=== PATIENT | female | born 1970 | race Caucasian/White ===

== ENCOUNTER → 2020-04-02 15:42 | Outpatient (CLI) | payer BC, SELFPAY ==
[2020-04-04 14:57] LABS: Covid-19 Nasal PCR Sendout Lex POSITIVE
== END ==
PROVIDERS: PCP Internal Medicine Adolescent Medicine; Visit Provider Internal Medicine Adolescent Medicine
DX: Z20.828 Contact with and (suspected) exposure to other viral communicable diseases (principal); U07.1 COVID-19
CPT/HCPCS: U0004

== ENCOUNTER 2024-04-24 09:11 | Outpatient (CLI) | payer BC, SELFPAY ==
[2024-04-24 09:34] LABS: Basophils # 0.1 K/mm3 (0-0.2); Basophils % 1.1 % (0.1-2.0); Eosinophils # 0.1 K/mm3 (0.0-0.4); Eosinophils % 1.6 % (0.1-12.0); Hematocrit 42.8 % (37.0-47.0); Hemoglobin 14.1 g/dL (12.2-16.2); Lymphocytes # 2.1 K/mm3 (0.7-4.5); Lymphocytes % 29.4 % (10-50); Mean Corpuscular Hemoglobin 30.5 pg (27.0-31.2); Mean Corpuscular Volume 92.4 fl (81-99); Mean Platelet Volume 7.2 fl (7.4-10.4); Monocytes # 0.4 K/mm3 (0.1-1.0); Neutrophils # 4.4 K/mm3 (1.8-7.8); Neutrophils % 61.9 % (37.0-80.0); Platelet Count 317 K/mm3 (142-424); Red Blood Count 4.63 M/mm3 (4.20-5.40); Red Cell Distribution Width 12.9 % (11.5-17.5); White Blood Count 7.1 K/mm3 (4.8-10.8)
[2024-04-24 10:23] LABS: Alanine Aminotransferase 21 U/L (12-78); Albumin Level 4.6 g/dl (3.5-5.0); Alkaline Phosphatase 51 U/L (38-126); Anion Gap 10.2 mEq/L (5-15); Aspartate Amino Transferase 35 U/L (14-36); Bilirubin,Direct 0.2 mg/dl (0.0-0.4); Bilirubin,Indirect 0.3 mg/dL (0.0-0.9); Bilirubin,Total 0.5 mg/dl (0.2-1.3); Bilirubin,Unconjugated 0.3 mg/dL (0.0-1.1); Blood Urea Nitrogen 15 mg/dl (7-17); Carbon Dioxide 29 mmol/L (22.0-30.0); Chloride 103 mmol/L (98-107); Chol/HDL Ratio 2.4 (1-3.5); Cholesterol 213 mg/dl (140-200); Estimated Glomerular Filt Rate 87 ml/min (>60); GFR (African American) 105 ML/MIN (>60); Glucose 84 mg/dl (74-100); HDL Cholesterol 88 mg/dl (40-60); Potassium 4.2 mmoL/L (3.5-5.1); Sodium 138 mmol/L (136-145); Total Protein,Serum 6.9 g/dl (6.3-8.2); Triglycerides 82 mg/dl (30-150); VLDL Cholesterol 16 mg/dL (0-40)
[2024-04-24 10:35] LABS: Direct LDL Cholesterol 104.56 mg/dL (100-129)
[2024-04-24 10:39] LABS: Free T4 (Free Thyroxine) 1.07 ng/dl (0.78-2.19)
[2024-04-24 10:55] LABS: Thyroid Stimulating Hormone 1.86 uIU/mL (0.465-4.68)
== END 2024-04-24 23:59 | disposition home or self-care (01) ==
LOC: LAB 09:12
PROVIDERS: PCP Family Medicine; Visit Provider Nurse Practitioner
DX: Q23.81 Bicuspid aortic valve (principal); R06.09 Other forms of dyspnea; I35.0 Nonrheumatic aortic (valve) stenosis
CPT/HCPCS: 36415; 80048; 80061; 80076; 84439; 84443; 85025

== ENCOUNTER 2024-05-05 07:50 | Outpatient (CLI) | payer BC, SELFPAY ==
--- NOTE | 2024-05-05 07:53 | CA_ITS ---
APPROVED REPORT EXAM: Comprehensive 2D, Doppler, and color-flow Echocardiogram [employer]: RIO Navas, RVS Ht: 5 ft 4 in Wt: 146lbs BSA: 1.71 BP: 119/53 mmHg Indications: Aortic Murmur, Dyspnea, MVP, Tricuspid regurgiation 2D Dimensions Aortic Root 2.52 cm LVEF ([facility]) 54.10 % Left Atrium 3.29 cm LV Volume 96.90 mL RVID Base (AP4) 3.57 cm (M/F) 2.5-4.1 LA Volume 52.30 mL LVOT 1.84 cm (M/F) 1.5-2.5 LA Volume Index 30.60 mL/m2 (M/F) 16-34 EF AP4 53.10 % EF AP2 54.7 % EF BP 54.1 % GL Strain -20.7 % M-Mode Dimensions RVDd 2.72 cm (0.9-2.6) LVDd 4.80 cm (3.5-5.7) Ao Diam 2.62 cm (2.0-3.7) LVDs 3.56 cm (3.5-5.7) IVSd 1.04 cm (0.6-1.1) PWd 0.91 cm (0.6-1.1) EF (Teich) 51.20% EPSs 0.50 cm FS 26.10% EDV (Teich) 108.60 mL TAPSE 1.65 (<1.7) ESV (Teich) 53.00 mL LV Diastology E Decel Time 325 (160-240 msec) E/A Ratio 1.27 MED E' 9.3 (>= 7 cm/sec) MED A' 11.90 cm/s E'/MED E' Ratio 6.94 (<= 14) LAT E' 14.0 (>= 10 cm/sec) LAT A' 12.00 cm/s E/LAT E' Ratio 4.61 (<= 14) Pulm Vein s 49.00 cm/sec PV S/D Ratio 2.40 Pulm Vein d 23.00 cm/sec Ar-A Duration 94.00 msec Aortic Valve LVOT Max 129.0 (70-110 cm/s) KWAKU Index 0.64 cm2/m2 LVOT VTI 27.47 cm AoV Peak Luis. 289.0 (50-130 cm/s) AO Peak GR. 32.90 mmHg AO Mean GR. 18.80 (<5 mmHg) AO VTI 67.3 (18-25 cm) KWAKU (VTI) 1.09 (2.5-4.5 cm2) Mitral Valve MV E Max Luis. 65.0 (40-130 cm/s) MV A Velocity 51.0 (40-130 cm/s) E/A Ratio 1.27 MV Decel. Time 325 (160-240 ms) Tricuspid Valve TR P. Velocity 256.00 cm/s RAP Estimate 10.00 mmHg RVSP 36.30 mmHg Left Ventricle The left ventricle is normal size. The left ventricular systolic function is normal. The left ventricular ejection fraction is within the normal range. There is normal left ventricular wall thickness. There is normal LV segmental wall motion. The left ventricular diastolic function is normal. LVEF is 55%. Right Ventricle The right ventricle is normal size. The right ventricular systolic function is normal. Atria The left atrium size is normal. The right atrium size is normal. There is no color Doppler evidence of interatrial shunt. Aortic Valve The aortic valve opens well. There is no aortic valvular stenosis. No aortic regurgitation is present. Mitral Valve There is borderline bileaflet mitral valve prolapse. No evidence of mitral valve stenosis. Trace mitral regurgitation. Tricuspid Valve Tricuspid valve is grossly normal in structure and function. Mild tricuspid regurgitation. RVSP is 25-30 mmHg. Pulmonic Valve The pulmonary valve is normal in structure. Trace pulmonic regurgitation. Great Vessels The aortic root is normal in size. The ascending aorta is normal in size. IVC is normal in size and collapses >50% with inspiration. Pericardium There is no pericardial effusion. Other Information Study Quality: Adequate Conclusion Normal biventricular systolic function. Mild TR. RVSP is 25-30 mmHg. Electronically signed by : Ada Gibson MD 05/17/2024 14:38:50
== END 2024-05-05 23:59 | disposition home or self-care (01) ==
LOC: RT 07:51
PROVIDERS: PCP Family Medicine; Visit Provider Nurse Practitioner
DX: Q23.81 Bicuspid aortic valve (principal); I35.0 Nonrheumatic aortic (valve) stenosis; R06.09 Other forms of dyspnea
CPT/HCPCS: 93306